=== PATIENT | male | born 1950 | race Caucasian/White ===

== ENCOUNTER 2016-04-24 22:07 | Inpatient (IN) | payer BC ==
--- NOTE | ~2016-04-24 | CN ---
Consultation Report [facility] [address] [place]. [address] NAME: MARITZA KIMBALL : 48 STATUS : ADM IN [facility]#: [id number] AGE: 65 ADM/REG DATE : 04/24/16 MR#: [id number] REPORT SERV DATE: 05/09/16 DICTATED BY: EMMANUEL MUÑOZ DATE: 05/09/16 REPORT STATUS : Draft TRANSCRIBED BY: JESUS DATE: 05/09/16 DATE OF CONSULTATION: REASON FOR CONSULTATION: Right hip wound closure. 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 He was admitted on 04/24/2016 with pneumonia, UTI, and sepsis. He is a C5 through C7 quadriplegic, which occurred after a fall in 2015. He has a colostomy and a suprapubic catheter. He has had two flap operations to the decubitus ulcer on his right hip. Surgery was consulted for wound closure. He is scheduled at [facility] with Dr. Dover on Wednesday, 05/13 for closure. Plan is to transfer him on Wednesday. Please see Dr. Weeks's dictation for past medical history, past surgical history, allergies, medications, social history, family history, and review of systems as in the HPI, otherwise negative. PHYSICAL EXAMINATION: VITAL SIGNS: 97.8, 54, 18, 144/67. GENERAL: Alert white male, in no acute distress and findings consistent with a C5-C7 quadriplegic. The area of the right buttock has Aquacel and measures about 2 x 4 cm in area. There is no surrounding erythema. LABORATORY DATA: White count 9.4, H and H 11.2 and 35.4, and platelets of 242. Electrolytes within normal range. Creatinine is 0.5. Urine culture showed Proteus mirabilis UTI. Stool was positive for heme and blood cultures are negative. ASSESSMENT AND PLAN: Stage IV right hip decubitus ulcer, awaiting closure. Plan is to transfer the patient to [facility] on Wednesday. We will alert Dr. Dover, who will return on that day from spring. Wound closure is scheduled for 05/13 at [place]. KAREN/JESUS Emmanuel Muñoz M.D. / [id number] CC: Prabhjot Weeks M.D.
--- NOTE | ~2016-04-24 | HP ---
History And Physical [place] [address] [facility] [place]. [address] NAME: MARITZA KIMBALL : [birth year] STATUS : ADM [place] PAT#: [id number] AGE: 65 ADM/REG DATE : 04/24/16 MR#: [id number] REPORT SERV DATE: 04/25/16 DICTATED BY: DAHLIA PARRA DATE: 04/25/16 REPORT STATUS : Draft TRANSCRIBED BY: MODJosé Miguel DATE: 04/25/16 DATE OF ADMISSION: 04/24/2016 HISTORY OF PRESENT ILLNESS: The patient is a 65-year-old with whom I received a call late yesterday evening around 7 that he was having some diffuse pain all over. He did not feel well and he did not really know what to do. He felt like he had a fever, but he was not sure. He was instructed to take some Tylenol with Codeine and if he did not get better in 30 to 45 minutes to call me back. The patient called back in about 50 minutes and states that something was not right. I instructed him to go to the emergency room. Upon his arrival in the emergency room, he was tachycardic, flushed and upon workup was found to have pneumonia, urinary tract infection, felt to be septic and then was subsequently admitted. PAST MEDICAL HISTORY: 1. He has a past medical history of an incomplete quad of C5-7 following the fall of 2015 when he sustained a fall downstairs in his home where he laid at the bottom of the stairs for over 24 hours. 2. Hypertension. 3. Hyperlipidemia. 4. Following his injury, he has a colostomy and a suprapubic catheter. He has also developed a stage IV pressure ulcer that has increased in size despite the use of a wound VAC. 5. Constipation and insomnia. SURGICAL HISTORY: Patient has had fusion of C1 through C6, the colostomy, the suprapubic catheter, and a right hernia repair. His son Lucas Kimball is his power of litigation attorney associate for health care and did call and speak with Lucas at the time of my visit with Dr. Randall. 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 He does have a history of drinking. He does not smoke. He is currently . He has 2 children, son and daughter. Son is involved in the patient's life. ALLERGIES: HE HAS ALLERGIES TO MORPHINE AND LATEX GLOVES. HE HAD A LONG STENT FOLLOWING HIS INITIAL INJURY IN NOVEMBER WHERE HE WENT TO [place], [facility], [facility] TO [facility], AND THEN [facility], AND THEN BACK HOME. 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 HE HAS LEFT FOR SOMETIME DURING THE DAY AND THEN 4 HOURS AT NIGHT. CURRENT MEDICATIONS: Baclofen 10 mg twice a day. He takes Valium 5 mg twice a day. He is on Dantrium 25 mg twice a day, Lexapro 10 a day, Neurontin 300 mg every 4 hours. Hydrocodone 7.5 325 three times a day as needed. Ibuprofen 600 mg every 6 as needed. Magnesium 400 mg twice a day. Multivitamin with minerals daily. Nifedipine ER 30 mg a day. Zofran as needed. Zinc 220 mg daily. PHYSICAL EXAMINATION: VITAL SIGNS: Patient is lying in bed. States that he feels a lot better. Still has a low- History And Physical [address] [address] NAME: MARITZA KIMBALL : [birth year] STATUS : ADM [place] PAT#: [id number] AGE: 65 ADM/REG DATE : 04/24/16 MR#: [id number] REPORT SERV DATE: 04/25/16 DICTATED BY: DAHLIA PARRA DATE: 04/25/16 REPORT STATUS : Draft TRANSCRIBED BY: JESUS DATE: 04/25/16 grade temp of 99, heart rate is 90, his blood pressure is 150/77, respiratory rate 20, O2 saturation on 2 L is 92%. HEENT: He is complaining of a headache. Grossly within normal limits. LUNGS: Clear with diminished breath sounds at the bases. CARDIAC: Regular rate. ABDOMEN: Soft, with positive bowel sounds. He has colostomy in the left mid abdomen. He has a suprapubic catheter in. The patient has a stage IV pressure ulcer on the sacrum. EXTREMITIES: He has bilateral foot drop with no peripheral edema in his upper extremity. His left upper extremity is flexed at the elbow and he has older brace on. When he is in an upright position, he can move his right upper extremity. IMPRESSION: The patient just recently was told that the wound VAC would be taken off and options were given to him, i.e., going to a facility, he did not want to leave his home, did not want to go to the wound center, and so now that he is in the hospital with pneumonia and urinary tract infection and sepsis. PLAN: We will give him fluids, treat with the antibiotics, and get the wound nurse involved looking at trying to autolytically debride the wound and come up with some packing to help improve and heal his wound with the ultimate goal of him returning back home with his choices program. He is dependent in 6/6 of his ADLs. TM/JSEUS Dahlia Parra M.D. / [id number]
--- NOTE | ~2016-04-24 | DS ---
Discharge Summary [facility] [address] [place]. [address] NAME: MARITZA KIMBALL : 48 STATUS : DIS IN PAT#: [id number] AGE: 65 ADM/REG DATE : 04/24/16 MR#: [id number] REPORT SERV DATE: 05/22/16 DICTATED BY: DAHLIA PARRA DATE: 05/21/16 REPORT STATUS : Draft TRANSCRIBED BY: JESUS DATE: 05/21/16 Data Collection from hospitalization DISCHARGE DIAGNOSES: 1. Stage IV right hip decubitus. 2. Urinary tract infection - resolved. 3. Incomplete quadriplegia, C5-C7. 4. Hypertension. 5. Hyperlipidemia. 6. Insomnia. 7. Constipation. 8. Sepsis. CONSULTATIONS: 1. Albina Muñoz M.D. 2. Anibal Dover M.D. PROCEDURES PERFORMED: CT scan of the abdomen and pelvis without contrast on 04/24/2016. MEDICATIONS: Albuterol via inhaler every four hours while awake as instructed, Artificial Tears two drops every six hours as needed, Lioresal 10 mg twice a day, Iodosorb gel topically daily as instructed, Dantrium 25 mg every 12 hours as instructed, Mucus Relief tablet one tablet every 12 hours, Valium 5 mg every 12 hours, Lexapro 10 mg daily, Neurontin 300 mg four times a day, [place] 10/325 one tablet every six hours, hydrocortisone cream one application topically as needed, magnesium oxide 400 mg twice a day, multivitamins with minerals one tablet daily, multivitamin without minerals one tablet daily, Adalat CC 30 mg daily, Zofran 4 mg every four hours as needed, and Orazinc 220 mg daily. CONDITION AT DISCHARGE: Stable. DISPOSITION: The patient was transferred to [facility]. 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 I received a call from around 7:00 p.m. that he was having diffuse pain all over. He did not feel well and did not know what to do. He felt like he had a fever, but was not sure. He was instructed to take some Tylenol with Codeine, and if it did not get better within 30 to 45 minutes, to call me back. He called back in about 50 minutes and said something was not right. He was instructed to come to the emergency room. Upon his arrival in the emergency room, he was tachycardic and flushed. On workup, he was found to have pneumonia, urinary tract infection, and was felt to be septic. He was admitted to the hospital at this time for further evaluation and treatment. Upon admission, fluids were started. He was going to be treated with antibiotics. The patient had recently been told that his wound VAC would be taken off and options had being given to him. The patient did not want to leave his home and did not want to go to the Wound Center. Now, he was in the hospital with pneumonia, urinary tract infection, and Discharge Summary [address] [address] NAME: MARITZA KIMBALL : 48 STATUS : DIS IN PAT#: [id number] AGE: 65 ADM/REG DATE : 04/24/16 MR#: [id number] REPORT SERV DATE: 05/22/16 DICTATED BY: DAHLIA PARRA DATE: 05/21/16 REPORT STATUS : Draft TRANSCRIBED BY: JESUS DATE: 05/21/16 sepsis. On 04/26/2016, he seemed to be feeling better. He was alert. He did have some constipation. The patient has a stage IV pressure ulcer of the right hip. Blood cultures had shown no growth. Urine culture was obtained. Dr. Lam Dover was going to be made aware of the patient's condition. White count was 16.7 on admission and decreased to 6.7 at this time. He was changed to oral medications. On 04/28/2016, we greatly appreciated Plastics who came by regarding possible wound closure. It was felt that the patient would be able to have the wound closed. His pneumonia was improving. Zithromax was continued. He was seen by Dr. Lam Dover. The patient was well known to him. The patient has incomplete paraplegia. He also has a long history of spinal stenosis at the lumbar level. He is going to schedule wound closure of the right hip. On 04/30/2016, his pneumonia continued to improve. The patient was being given Ensure with meals. He seemed to be in good spirits. His pneumonia had resolved. He did have a good bowel movement via colostomy. The patient was able to be out of his bed, sitting in a chair. Occupational Therapy evaluated the patient. We would like to get the patient to stand with Physical Therapy if possible. On 05/07/2016, he had no new complaints. He was able to stand with Physical Therapy that day and new splint was applied. His lungs were clear. He had no cough. On 05/08/2016, the patient was going to be transferred to [facility] to undergo surgical intervention. The next day, the patient was seen by Dr. Albina Muñoz regarding right hip wound closure. The patient has a colostomy and a suprapubic catheter. He has had two flap operations to the decubitus ulcer on the right hip. His stool had been positive for heme. Blood cultures had been negative. His urine culture had shown Proteus mirabilis. The plan was to transfer the patient to [facility] to undergo surgery. Over the next couple of days, he had no new complaints. Discharge planning was performed. On 05/12/2016, discharge instructions were given. Due to his improved and stable condition, he was discharged to [facility] with the above-stated instructions. Information collected by: Sofia Rudolph I submit the above information as my discharge summary. BRET/JESUS Dahlia Parra M.D. / [id number] CC: Hosea Gloria M.D. Shauna Lorenzo-Rivero, M.D.
[2016-04-24 21:39] LABS: BASOPHILS 0.2 %; BASOPHILS ABSOLUTE 0.03 10/3/uL (0.0-0.16); EOSINOPHILS 0.4 %; EOSINOPHILS ABSOLUTE 0.07 10/3/uL (0.0-0.53); HEMATOCRIT 41.5 % (40.0-51.0); HEMOGLOBIN 13.7 g/dL (13.6-17.8); IMMATURE GRANULOCYTES 0.2 %; IMMATURE GRANULOCYTES ABSOLUTE 0.04 10/3/uL (0.0-0.11); LYMPHOCYTES 3.8 %; LYMPHOCYTES ABSOLUTE 0.63 10/3/uL (0.67-4.30); MEAN CORPUSCULAR HEMOGLOB 27.8 pg (26.0-34.0); MEAN CORPUSCULAR VOLUME 84.2 fL (80-100); MEAN PLATELET VOLUME 10.5 fL (9.2-13.0); MONOCYTES 4.7 %; MONOCYTES ABSOLUTE 0.78 10/3/uL (0.21-1.20); NEUTROPHILS 90.7 %; PLATELET COUNT 220 10/3/uL (150-400); RBC DISTRIBUTION WIDTH 16.5 % (12.0-16.0); RED CELL COUNT 4.93 10/6/uL (4.7-6.1); WHITE BLOOD CELLS 16.7 10/3/uL (4.5-10.5)
[2016-04-24 21:40] LABS: MANUAL DIFF NO %
[2016-04-24 21:49] LABS: ASCORBIC ACID (UR NOT ORDER) NEG (NEG); BILIRUBIN, URINE NEGATIVE (NEG); ER URINALYSIS TAT 0 Hrs 15 Mins; KETONE, URINE TRACE MG/DL (NEG); LEUKOCYTE ESTERASE(NOT OR LARGE (NEG); NITRITE (URINE) NEG (NEG); WBC (NOT ORDERED) (RFLEX) 40 (0-5)
[2016-04-24 21:54] LABS: A/G RATIO 0.9 (0.7-1.9); ALBUMIN 3.7 G/DL (3.5-5.0); ALKALINE PHOSPHATASE 85 U/L (45-117); BUN (BLOOD UREA NITROGEN) 9 MG/DL (6-23); CALCIUM, SERUM 8.6 MG/DL (8.5-10.4); CHLORIDE, SERUM 97 MMOL/L (96-112); CO2 (CARBON DIOXIDE) 27 MMOL/L (24-34); CREATININE 0.49 MG/DL (0.70-1.30); GFR AFRICAN AMERICAN 132 ML/MIN (>=60); GFR NON AFRICAN AMERICAN 114 ML/MIN (>=60); GLOBULIN 4.3 G/DL (2.5-4.1); GLUCOSE, SERUM 98 MG/DL (60-99); POTASSIUM, SERUM 4.2 MMOL/L (3.5-5.3); SGOT(AST) 9 U/L (5-40); SGPT(ALT) 15 U/L (5-65); SODIUM, SERUM 137 MMOL/L (135-148); TOTAL BILIRUBIN 0.4 MG/DL (0-1.2)
[~2016-04-24 22:07] MED LIST: ADALAT CC30 MG PO; AMB5 PO; CORT-DOME 1% CR15 GM TOP; DANTRIUM25 MG PO; DIOVAN40 MG PO; IBU600 PO; L40 PO; LEXAPRO10 PO; LIOR10 PO; MAGOX4 PO; MIRALAX POWDER1 PKT PO; MUCUSRELIEF PO; MULTIPLE VIT PO; MULTIVIT/MIN PO; NEUR300 PO; NORCO1 TA2 PO; PEP20 PO; SENTAB PO; TEARS AGAI1 OPH; TRICOR145 PO; V5 PO; ZINC220C PO; ZOFRAN ODT4 MG PO
[2016-04-24 22:22] LABS: PROCALCITONIN < 0.05 ng/mL (<0.5)
[2016-04-24 22:41] LABS: INTERNATIONAL NORMAL RATI 1.2 UNITS (-); PROTIME (NOT ORD) 15.3 SEC (12.0-14.5)
[2016-04-24 22:47] LABS: INFLUENZA A SCREEN NEGATIVE (NEGATIVE); INFLUENZA B SCREEN NEGATIVE (NEGATIVE)
[2016-04-25 09:30] LABS: BASOPHILS 0.3 %; BASOPHILS ABSOLUTE 0.04 10/3/uL (0.0-0.16); EOSINOPHILS 0.1 %; EOSINOPHILS ABSOLUTE 0.02 10/3/uL (0.0-0.53); HEMOGLOBIN 13.3 g/dL (13.6-17.8); IMMATURE GRANULOCYTES 0.1 %; IMMATURE GRANULOCYTES ABSOLUTE 0.02 10/3/uL (0.0-0.11); LYMPHOCYTES 5.7 %; LYMPHOCYTES ABSOLUTE 0.78 10/3/uL (0.67-4.30); MEAN CORPUS HGB CONC 31.7 g/dL (32.0-36.0); MEAN CORPUSCULAR HEMOGLOB 27.1 pg (26.0-34.0); MEAN CORPUSCULAR VOLUME 85.5 fL (80-100); MEAN PLATELET VOLUME 10.6 fL (9.2-13.0); MONOCYTES 6.5 %; MONOCYTES ABSOLUTE 0.89 10/3/uL (0.21-1.20); NEUTROPHILS 87.3 %; NEUTROPHILS ABSOLUTE 11.98 10/3/uL (2.02-8.40); PLATELET COUNT 188 10/3/uL (150-400); RBC DISTRIBUTION WIDTH 17.1 % (12.0-16.0); RED CELL COUNT 4.91 10/6/uL (4.7-6.1); WHITE BLOOD CELLS 13.7 10/3/uL (4.5-10.5)
[2016-04-25 09:31] LABS: MANUAL DIFF NO %
[2016-04-25 09:40] LABS: BUN (BLOOD UREA NITROGEN) 12 MG/DL (6-23); CALCIUM, SERUM 8.2 MG/DL (8.5-10.4); CHLORIDE, SERUM 100 MMOL/L (96-112); CO2 (CARBON DIOXIDE) 27 MMOL/L (24-34); CREATININE 0.61 MG/DL (0.70-1.30); GFR AFRICAN AMERICAN 121 ML/MIN (>=60); GFR NON AFRICAN AMERICAN 104 ML/MIN (>=60); GLUCOSE, SERUM 86 MG/DL (60-99); POTASSIUM, SERUM 4.5 MMOL/L (3.5-5.3); SODIUM, SERUM 136 MMOL/L (135-148)
[2016-04-26 07:24] LABS: BASOPHILS 0.4 %; BASOPHILS ABSOLUTE 0.03 10/3/uL (0.0-0.16); EOSINOPHILS 0.7 %; EOSINOPHILS ABSOLUTE 0.05 10/3/uL (0.0-0.53); HEMOGLOBIN 11.2 g/dL (13.6-17.8); IMMATURE GRANULOCYTES 0.1 %; IMMATURE GRANULOCYTES ABSOLUTE 0.01 10/3/uL (0.0-0.11); LYMPHOCYTES 11.7 %; LYMPHOCYTES ABSOLUTE 0.78 10/3/uL (0.67-4.30); MEAN CORPUS HGB CONC 32.5 g/dL (32.0-36.0); MEAN CORPUSCULAR HEMOGLOB 27.3 pg (26.0-34.0); MEAN CORPUSCULAR VOLUME 84.1 fL (80-100); MONOCYTES 9.9 %; MONOCYTES ABSOLUTE 0.66 10/3/uL (0.21-1.20); NEUTROPHILS 77.2 %; NEUTROPHILS ABSOLUTE 5.14 10/3/uL (2.02-8.40); PLATELET COUNT 181 10/3/uL (150-400); RBC DISTRIBUTION WIDTH 17.2 % (12.0-16.0)
[2016-04-26 07:28] LABS: HEMATOCRIT 34.5 % (40.0-51.0); MANUAL DIFF NO %; WHITE BLOOD CELLS 6.7 10/3/uL (4.5-10.5)
[2016-04-26 07:35] LABS: ALBUMIN 2.7 G/DL (3.5-5.0); BUN (BLOOD UREA NITROGEN) 9 MG/DL (6-23); CALCIUM, SERUM 7.3 MG/DL (8.5-10.4); CHLORIDE, SERUM 98 MMOL/L (96-112); CO2 (CARBON DIOXIDE) 26 MMOL/L (24-34); CREATININE 0.47 MG/DL (0.70-1.30); GFR AFRICAN AMERICAN 134 ML/MIN (>=60); GFR NON AFRICAN AMERICAN 116 ML/MIN (>=60); GLUCOSE, SERUM 256 MG/DL (60-99); POTASSIUM, SERUM 3.8 MMOL/L (3.5-5.3); SODIUM, SERUM 134 MMOL/L (135-148)
[2016-04-29 21:00] LABS: BASOPHILS 0.5 %; BASOPHILS ABSOLUTE 0.05 10/3/uL (0.0-0.16); EOSINOPHILS 6.3 %; EOSINOPHILS ABSOLUTE 0.59 10/3/uL (0.0-0.53); HEMATOCRIT 35.4 % (40.0-51.0); HEMOGLOBIN 11.2 g/dL (13.6-17.8); IMMATURE GRANULOCYTES 0.3 %; IMMATURE GRANULOCYTES ABSOLUTE 0.03 10/3/uL (0.0-0.11); LYMPHOCYTES 14.8 %; LYMPHOCYTES ABSOLUTE 1.39 10/3/uL (0.67-4.30); MEAN CORPUS HGB CONC 31.6 g/dL (32.0-36.0); MEAN CORPUSCULAR HEMOGLOB 26.7 pg (26.0-34.0); MEAN CORPUSCULAR VOLUME 84.5 fL (80-100); MEAN PLATELET VOLUME 10.5 fL (9.2-13.0); MONOCYTES 10.4 %; MONOCYTES ABSOLUTE 0.98 10/3/uL (0.21-1.20); NEUTROPHILS 67.7 %; NEUTROPHILS ABSOLUTE 6.36 10/3/uL (2.02-8.40); RBC DISTRIBUTION WIDTH 16.6 % (12.0-16.0); RED CELL COUNT 4.19 10/6/uL (4.7-6.1)
[2016-04-29 21:05] LABS: MANUAL DIFF NO %; PLATELET COUNT 242 10/3/uL (150-400); WHITE BLOOD CELLS 9.4 10/3/uL (4.5-10.5)
[2016-04-29 21:17] LABS: BUN (BLOOD UREA NITROGEN) 12 MG/DL (6-23); CALCIUM, SERUM 8.2 MG/DL (8.5-10.4); CHLORIDE, SERUM 103 MMOL/L (96-112); CO2 (CARBON DIOXIDE) 30 MMOL/L (24-34); GFR AFRICAN AMERICAN 131 ML/MIN (>=60); GFR NON AFRICAN AMERICAN 113 ML/MIN (>=60); POTASSIUM, SERUM 4.1 MMOL/L (3.5-5.3); PREALBUMIN 14.7 MG/DL (17.0-43.0); SODIUM, SERUM 140 MMOL/L (135-148)
[2016-04-29 21:18] LABS: GLUCOSE, SERUM 108 MG/DL (60-99)
[2016-05-11] MEDS ORDERED: IODOSORB T (22:51)
[2016-05-11] MEDS ORDERED: NORCO1 TAB PO (22:52)
[2016-05-11] MEDS ORDERED: ALBUTEROL0.63 MG/3 INH (22:55)
[2016-08-15] MEDS ORDERED: MIRALAX POWDER1 PKT PO (01:08)
[2016-08-15] MEDS ORDERED: DOK100 MG PO (01:09)
[2016-08-15] MEDS ORDERED: DIOV160 (01:09)
[2016-08-15] MEDS ORDERED: ADALAT CC90 MG PO (01:09)
[2016-08-15] MEDS ORDERED: LIOR10 PO (01:10)
[2016-08-15] MEDS ORDERED: TRAZ50 PO (01:10)
[2016-08-15] MEDS ORDERED: NORCO1 TAB PO (01:11)
[2016-08-15] MEDS ORDERED: BEN50P IM (01:11)
[2016-08-15] MEDS ORDERED: V5 PO (01:12)
[2016-08-15] MEDS ORDERED: MULTIPLE VIT PO (01:12)
[2016-08-15] MEDS ORDERED: VITC500 PO (01:12)
[2016-08-15] MEDS ORDERED: ZINC220C PO (01:13)
[2016-08-15] MEDS ORDERED: DUONEB (01:13)
[2016-08-15] MEDS ORDERED: DUONEB INH (01:14)
[2016-08-15] MEDS ORDERED: MONODOX100 MG PO (01:15)
[2016-08-15] MEDS ORDERED: PROBIOTIC (01:15)
== END 2016-05-12 00:40 | disposition short-term general hospital (02) | DRG 871 ==
LOC: ER 22:07 → 6NO 23:16
PROVIDERS: Internal Medicine Geriatric Medicine; Nurse Practitioner
DX: A41.9 Sepsis, unspecified organism (principal); J18.9 Pneumonia, unspecified organism; G82.54 Quadriplegia, C5-C7 incomplete; L89.154 Pressure ulcer of sacral region, stage 4; N39.0 Urinary tract infection, site not specified; Z98.1 Arthrodesis status; W10.8XXS Fall (on) (from) other stairs and steps, sequela; E78.1 Pure hyperglyceridemia; I10 Essential (primary) hypertension; K59.00 Constipation, unspecified; Z91.040 Latex allergy status; Z88.5 Allergy status to narcotic agent; Z93.3 Colostomy status
CPT/HCPCS: 71010; 74176; 80048; 80053; 81001; 82040; 82272; 82962; 83605; 83690; 84134; 84145; 85025; 85610; 85730; 87040; 87077; 87086; 87186; 87804; 93005; 94640; 96374; 96375; 97110-GO; 97110-GP; 97162-GP; 97166-GO; 97530-GP; 99291; A9270-GY; J0456; J2405